=== PATIENT | female | born 1955 | race Hispanic/Latino ===

== ENCOUNTER 2016-09-09 13:43 | Emergency (ER) | payer OTHER ==
[~2016-09-09] VITALS: Ht 154.9 cm; Wt 89.0 kg
[~2016-09-09 13:43] MED LIST: ACYCLOVIR800 MG PO; AMITRIPTYLINE H50 MG PO; AMOXICILLIN/CL875 MG PO; ANTI-FUNGAL12 TOP; CARAFATE1 GM PO; CIPROFLOXACN500 MG PO; DIFLUCAN150 MG PO; FAMCICLOVIR500 MG PO; HYDROCO/APAP1 T10 PO; HYDROCODONE/ACE1 TA8 PO; HYDROXYZ HCL25 MG PO; KEFLEX500 M1 PO; KEFLEX500 MG PO; LISINOP/HCTZ1 TA1 PO; LISINOPRIL10 MG PO; LISINOPRIL20 M1; LISINOPRIL20 MG PO; LORTAB 7.57.5 MG PO; LORTAB5 PO; LOTRISONE CREAM15 GM EX; MELOXICAM15 MG PO; METHOCARBAMOL500 MG; METHOCARBAMOL500 MG PO; METHOCARBAMOL750 MG OR; METOPROL TAR25 MG PO; MIRALAX3350 NF PO; NITROFURANTOIN100 MG PO; NITROSTAT0.4 MG SL; NORCO1 TA2; NORCO1 TA2 PO; NYSTATIN TOP; NYSTOP100000 MG TOP; OCUVIT1 PO; OCUVITE PO; PANTOPRAZOLE SO40 M1 PO; PAROXETINE20 MG; PAROXETINE20 MG PO; PERCOCET 5/321 COMBO PO; POT CHLORIDE10 ME5 PO; PRILOSEC40 MG PO; PROAIR HFA IN; PROCTOCORT1 % EX; ROBAXIN-750750 MG PO; ROCEPHIN1 G1 IV; RYBIX ODT50 MG; TOVIAZ4 MG PO; TRAMADOL HCL50 MG PO; TYLENOL325 MG PO
[2016-09-09] MEDS ORDERED: LISINOPRIL20 MG PO (14:10)
[2016-09-09] MEDS ORDERED: HYDROCHLOROT12.5 MG PO (14:11)
[2016-09-09] MEDS ORDERED: PAXIL30 MG PO (14:12)
[2016-09-09] MEDS ORDERED: PROAIR HFA IN (14:12)
[2016-09-09] MEDS ORDERED: COLACE100 MG PO (14:14)
[2016-09-09] MEDS ORDERED: LYRICA100 MG PO (14:14)
[2016-09-09] MEDS ORDERED: CYANOCOBALAM1000 MCG IJ (14:15)
[2016-09-09] MEDS ORDERED: POT CHLORIDE10 ME1 PO (14:15)
[2016-09-09 14:28] LABS: HEMATOCRIT 41.7 % (37.0-47.0); IMMATURE GRANULOCYTES 0.4 % (0.0-1.0); MEAN CELL VOLUME 84.4 fL CALC (80.0-100.0); MEAN CORPUSCULAR HGB 28.3 pG CALC (26.0-32.0); MEAN CORPUSCULAR HGB CONC 33.6 g/L CALC (32.0-36.0); NEUT# 6.75 thou/uL (2.00-7.15); RED BLOOD COUNT 4.94 mill/uL (4.20-5.60); RED CELL DISTRI WIDTH 15.6 % (11.5-15.5)
[2016-09-09 15:14] LABS: ALKALINE PHOSPHATASE 96 u/l (38-126); AMYLASE 45 u/l (30-110); ANION GAP 18 (6-22 (CALC)); BILIRUBIN, TOTAL 0.7 mg/dL (0.0-1.4); BUN 25 mg/dL (7-17); BUN/CREATININE RATIO 26 (12-20 (CALC)); CALCIUM 10.2 mg/dL (8.4-10.2); CARBON DIOXIDE 17 mmol/l (22-30); CHLORIDE 111 mmol/l (95-108); GFR 57 ML/MIN (>=60 (CALC)); GFR FOR AFR.AMER. > 60 ML/MIN (>=60 (CALC)); GLUCOSE 116 mg/dL (65-105); LIPASE 41 u/l (23-300); SGOT/AST 48 u/l (14-36); SGPT/ALT 39 u/l (9-52); SODIUM 142 mmol/l (137-146); TOTAL PROTEIN 8.4 g/dL (6.3-8.2)
[2016-09-09 15:26] LABS: MYOGLOBIN 60 ng/mL (0 - 62)
[2016-09-09 15:33] LABS: URINE BLOOD DIPSTICK NEGATIVE (NEGATIVE); URINE CLARITY CLEAR; URINE COLOR YELLOW; URINE GLUCOSE - DIPSTICK NEGATIVE (NEGATIVE); URINE KETONE TRACE mg/dL (NEGATIVE); URINE LEUK ESTERASE TRACE (NEGATIVE); URINE NITRITE - DIPSTICK NEGATIVE (Negative); URINE PROTEIN - DIPSTICK 30 mg/dL (NEG-TRACE); URINE UROBILINOGEN - DIPSTICK 0.2 E.U./dL (0.2)
[2016-09-09 15:42] LABS: URINE BILIRUBIN - DIPSTICK MODERATE (NEGATIVE)
[2016-09-09 15:43] LABS: URINE SQUAMOUS EPITHELIAL CELL FEW EPI/hpf (0-FEW)
[2016-09-09 16:06] LABS: C. DIFFICILE TOXIN A&B NEGATIVE (NEGATIVE)
[2016-09-09] MEDS ORDERED: POTASSIUM CHLO20 ME1 PO (17:45)
[2016-09-09 17:52] VITALS: BP 128/86
== END 2016-09-09 17:50 | disposition home or self-care (01) | DRG 392 ==
LOC: ED 13:43
PROVIDERS: Emergency Medicine
DX: R19.7 Diarrhea, unspecified (principal)

== ENCOUNTER 2018-06-23 17:03 | Emergency (ER) | payer MEDICAID ==
[~2018-06-23] VITALS: Ht 154.9 cm; Wt 72.0 kg
[~2018-06-23 17:03] MED LIST changes: +COLACE100 MG PO; +CYANOCOBALAM1000 MCG IJ; +HYDROCHLOROT12.5 MG PO; +LYRICA100 MG PO; +PAXIL30 MG PO; +POT CHLORIDE10 ME1 PO; +POTASSIUM CHLO20 ME1 PO
[2018-06-23 18:35] LABS: HEMATOCRIT 35.9 % (37.0-47.0); IMMATURE GRANULOCYTES 0.4 % (0.0-5.0); MEAN CORPUSCULAR HGB CONC 32.3 g/L CALC (32.0-36.0); NEUT# 5.94 thou/uL (2.00-7.15); RED BLOOD COUNT 3.87 mill/uL (4.20-5.60); RED CELL DISTRI WIDTH 14.1 % (11.5-15.5)
[2018-06-23 18:36] LABS: HEMOGLOBIN 11.6 g/dl (12.0-16.0); MEAN CELL VOLUME 92.8 fL CALC (80.0-100.0)
[2018-06-23 18:48] LABS: ALBUMIN 3.5 g/dL (3.2-5.0); ALKALINE PHOSPHATASE 64 u/l (38-126); ANION GAP 12 (6-22 (CALC)); BILIRUBIN, TOTAL 1.1 mg/dL (0.0-1.4); BUN 18 mg/dL (8-23); BUN/CREATININE RATIO 33 (12-20 (CALC)); CARBON DIOXIDE 27 mmol/l (22-30); CHLORIDE 107 mmol/l (95-108); CREATININE 0.5 mg/dL (0.5-1.0); GFR > 60 ML/MIN (>=60 (CALC)); GFR FOR AFR.AMER. > 60 ML/MIN (>=60 (CALC)); LIPASE 28 u/l (23-300); POTASSIUM 3.8 mmol/l (3.5-5.1); SGOT/AST 15 u/l (9-36); SODIUM 142 mmol/l (137-146); TOTAL PROTEIN 6.4 g/dL (6.3-8.2)
[2018-06-23] MEDS ORDERED: GABAPENTIN100 MG PO (19:59)
[2018-06-23 20:01] LABS: URINE BILIRUBIN - DIPSTICK NEGATIVE (NEGATIVE); URINE BLOOD DIPSTICK TRACE-INTACT (NEGATIVE); URINE COLOR YELLOW; URINE GLUCOSE - DIPSTICK NEGATIVE (NEGATIVE); URINE KETONE TRACE mg/dL (NEGATIVE); URINE LEUK ESTERASE NEGATIVE (NEGATIVE); URINE NITRITE - DIPSTICK NEGATIVE (Negative); URINE PROTEIN - DIPSTICK NEGATIVE (NEG-TRACE); URINE SPECIFIC GRAVITY 1.025; URINE UROBILINOGEN - DIPSTICK 0.2 E.U./dL (0.2)
[2018-06-23] MEDS ORDERED: ULTRAM50 M1 PO (20:15)
[2018-06-23 20:20] VITALS: BP 156/75
== END 2018-06-23 20:28 | disposition home or self-care (01) ==
LOC: ED 17:03
PROVIDERS: Family Medicine
DX: M79.10 Myalgia, unspecified site (principal); E11.9 Type 2 diabetes mellitus without complications; I10 Essential (primary) hypertension; Z98.84 Bariatric surgery status; R10.31 Right lower quadrant pain
CPT/HCPCS: Q9967

== ENCOUNTER → 2018-08-21 | Outpatient (REF) | payer OTHER ==
[~2018-08-21] MED LIST changes: +GABAPENTIN100 MG PO; +ULTRAM50 M1 PO
== END | disposition home or self-care (01) ==
LOC: ULTRASND 14:18
PROVIDERS: ATTEND Physician Assistant
DX: I97.2 Postmastectomy lymphedema syndrome (principal)

== ENCOUNTER 2019-03-04 06:17 | Day surgery (SDC) | payer OTHER ==
[~2019-03-04] VITALS: Ht 154.9 cm; Wt 72.6 kg
[~2019-03-04 06:17] MED LIST changes: +BACLOFEN10 MG PO; +NEURONTIN300 MG PO; +NORCO1 TA1 PO
[2019-03-04 07:49] VITALS: BP 130/77
== END 2019-03-04 08:05 | disposition home or self-care (01) ==
LOC: ORM 06:17
PROVIDERS: ATTEND Anesthesiology Pain Medicine
DX: M54.5 Low back pain (principal); M46.1 Sacroiliitis, not elsewhere classified

== ENCOUNTER 2019-03-25 06:52 | Day surgery (SDC) | payer OTHER ==
[2019-03-25 08:46] VITALS: BP 126/74
== END 2019-03-25 09:18 | disposition home or self-care (01) ==
LOC: ORM 06:52
PROVIDERS: ATTEND Anesthesiology Pain Medicine
DX: M54.5 Low back pain (principal)